=== PATIENT | male | born 1995 | race Caucasian/White ===

== ENCOUNTER 2016-08-22 22:26 | Emergency (ER) | payer BC, OTHER ==
[~2016-08-22] VITALS: Ht 180.3 cm; Wt 90.7 kg
[2016-08-22 23:02] LABS: BASOPHILS % (AUTO) 0 % (0-10); EOSINOPHILS # (AUTO) 0.1 10^3/uL (0.0-0.3); EOSINOPHILS % (AUTO) 2 % (0-10); LYMPHOCYTES # (AUTO) 2.9 X 10^3 (1.0-4.0); LYMPHOCYTES % (AUTO) 34 % (12-44); MEAN CORPUSCULAR HEMOGLOBIN 30 PG (25-34); MEAN CORPUSCULAR HGB CONC 36 G/DL (32-36); MEAN CORPUSCULAR VOLUME 83 FL (80-99); MEAN PLATELET VOLUME 11.2 FL (7.4-10.4); MONOCYTES # (AUTO) 0.8 X 10^3 (0.0-1.0); MONOCYTES % (AUTO) 10 % (0-12); NEUTROPHILS # (AUTO) 4.5 X 10^3 (1.8-7.8); NEUTROPHILS % (AUTO) 54 % (42-75); PLATELET COUNT 283 10^3/uL (130-400); RED BLOOD COUNT 5.12 10^6/uL (4.35-5.85); RED CELL DISTRIBUTION WIDTH 12.3 % (10.0-14.5); WHITE BLOOD COUNT 8.3 10^3/uL (4.3-11.0)
[2016-08-22 23:20] LABS: ALANINE AMINOTRANSFERASE 25 U/L (0-55); ANION GAP 12 MMOL/L (5-14); ASPARTATE AMINO TRANSFERASE 21 U/L (5-34); BILIRUBIN,TOTAL 0.5 MG/DL (0.1-1.0); BLOOD UREA NITROGEN 19 MG/DL (7-18); BUN/CREATININE RATIO 16; CALCIUM 9.6 MG/DL (8.5-10.1); CARBON DIOXIDE 24 MMOL/L (21-32); CHLORIDE 105 MMOL/L (98-107); CREATININE SERUM 1.21 MG/DL (0.60-1.30); GFR ESTIMATED > 60; GLUCOSE 83 MG/DL (70-105); MAGNESIUM 2.2 MG/DL (1.8-2.4); SODIUM 141 MMOL/L (135-145)
[2016-08-22 23:40] LABS: THYROID STIMULATING HORMONE 1.49 UIU/ML (0.35-4.94); TROPONIN I < 0.30 NG/ML (<0.30)
--- NOTE | 2016-08-23 00:29 | ED Chest Pain ---
General Chief Complaint: Chest Pain Stated Complaint: CHEST TIGHTNESS Nursing Triage Note: PT TO ED 8 W/ S.O. FOR C/O LT ARM PAIN ONSET 0500 THIS AM ET CHEST PAIN. PT'S S.O. REPORTS PT HAS HAD "TROUBLE SLEEPING" SINCE THE BEGINNING OF THIS YEAR, INTERMITTENT CHEST PAIN, LT ARM PAIN ET RAPID BOUNDING PULSE SINCE. REPORTS WAS SEEN ET EVALUATED AT [facility] BUT DENIES ANY "ANSWERS OR IMPROVEMENT". NO OTHER C/O AT THIS TIME. Nursing Sepsis Screen: No Definite Risk Source: patient Exam Limitations: no limitations History of Present Illness Time seen by provider: 23:30 Initial Comments Here with report of left arm pain this morning as well as intermittent chest pain this is been going on for several months. Also has had some trouble sleeping and feels his heart racing at night. He has been seen at outside facility and actually had a Holter monitor for 24 hours which did not have any significant findings. He has not had laboratory, radiology her EKG workup for he and the family. Denies nausea, vomiting, weakness, breathing problems or current problems right now. He is worried about his blood pressure. No recent long trips, trauma or injuries. He is concerned about his nighttime tachycardia. Timing/Duration: intermittent, other (3 months) Severity/Quality: mild Location: central Radiation: arms Activities at Onset: none ASA po CONTACT WORKER: No NTG SL CONTACT WORKER: No Associated Symptoms: No abdominal pain, No back pain, No diaphoresis, No nausea /vomiting, No shortness of breath, No weakness Allergies and Home Medications Allergies Coded Allergies: No Known Drug Allergies (Unverified , 08/22/16) Home Medications No Active Prescriptions or Reported Meds Review of Systems Constitutional: see HPINo chills, No fever EENTM: No Symptoms Reported Respiratory: No Symptoms Reported Cardiovascular: See HPI Chest Pain Palpitations Gastrointestinal: No Symptoms Reported Genitourinary: No Symptoms Reported Musculoskeletal: see HPI muscle pain Skin: no symptoms reported Psychiatric/Neurological: No Symptoms Reported All Other Systems Reviewed Negative Unless Noted: Yes Past Dxfxgfa-Buqzxu-Ymadam Hx Patient Social History Alcohol Use: Denies Use Recreational Drug Use: No Smoking Status: Never a Smoker Recent Foreign Travel: No Contact w/Someone Who Travel: No Recent Infectious Disease Expo: No Recent Hopitalizations: No Surgeries HX Surgeries: Yes Surgeries: Adenoidectomy, Tonsillectomy Respiratory Hx Respiratory Disorders: No Cardiovascular Hx Cardiac Disorders: No Neurological Hx Neurological Disorders: No Reproductive System Hx Reproductive Disorders: No Genitourinary Hx Genitourinary Disorders: No Gastrointestinal Hx Gastrointestinal Disorders: No Musculoskeletal Hx Musculoskeletal Disorders: No Endocrine Hx Endocrine Disorders: No HEENT HX ENT Disorders: No Cancer Hx Cancer: No Psychosocial Hx Psychiatric Problems: No Integumentary HX Skin/Integumentary Disorder: No Blood Transfusions Hx Blood Disorders: No Reviewed Nursing Assessment Reviewed/Agree w Nursing PMH: Yes Family Medical History Significant Family History: No Pertinent Family Hx Physical Exam Vital Signs Vital Sign - Last 12Hours 08/22/16 22:33 Temp 97.2 Pulse 78 Resp 18 B/P 132/72 Pulse Ox 98 O2 Delivery Room Air Capillary Refill : Less Than 3 Seconds General Appearance: No Apparent Distress WD/WN HEENT: PERRL/EOMI Pharynx Normal Neck: Non Tender Supple Respiratory: Lungs Clear Normal Breath Sounds Cardiovascular: Regular Rate, Rhythm No Murmur Gastrointestinal: Non Tender Soft (80) Extremity: Normal Range of Motion Non Tender No Calf Tenderness Neurologic/Psychiatric: Alert Oriented x3 ( is not his family all) Skin: Normal Color Warm/Dry Focused Exam Lactic Acid Level Laboratory Tests Test 08/22/16 22:50 Alanine Aminotransferase (ALT/SGPT) 25U/L (0-55) Albumin 5.0G/DL (3.2-4.5) H Alkaline Phosphatase 57U/L (40-136) Anion Gap 12MMOL/L (5-14) Aspartate Amino Transf (AST/SGOT) 21U/L (5-34) BUN/Creatinine Ratio 16 Blood Urea Nitrogen 19MG/DL (7-18) H Calcium Level 9.6MG/DL (8.5-10.1) Carbon Dioxide Level 24MMOL/L (21-32) Chloride Level 105MMOL/L (98-107) Creatinine 1.21MG/DL (0.60-1.30) Estimat Glomerular Filtration Rate > 60 Glucose Level 83MG/DL (70-105) Magnesium Level 2.2MG/DL (1.8-2.4) Potassium Level 4.0MMOL/L (3.6-5.0) Sodium Level 141MMOL/L (135-145) Thyroid Stimulating Hormone (TSH) 1.49UIU/ML (0.35-4.94) Total Bilirubin 0.5MG/DL (0.1-1.0) Total Protein 7.0G/DL (6.4-8.2) Troponin I < 0.30NG/ML (<0.30) Progress/Results/Core Measures Results/Orders Lab Results Laboratory Tests Test 08/22/16 22:50 Range/Units Alanine Aminotransferase (ALT/SGPT) 25 0-55 U/L Albumin 5.0 H 3.2-4.5 G/DL Alkaline Phosphatase 57 40-136 U/L Anion Gap 12 5-14 MMOL/L Aspartate Amino Transf (AST/SGOT) 21 5-34 U/L BUN/Creatinine Ratio 16 Basophils # (Auto) 0.0 0.0-0.1 10^3/uL Basophils (%) (Auto) 0 0-10 % Blood Urea Nitrogen 19 H 7-18 MG/DL Calcium Level 9.6 8.5-10.1 MG/DL Carbon Dioxide Level 24 21-32 MMOL/L Chloride Level 105 98-107 MMOL/L Creatinine 1.21 0.60-1.30 MG/DL D-Dimer < 0.27 0.00-0.49 UG/ML Eosinophils # (Auto) 0.1 0.0-0.3 10^3/uL Eosinophils (%) (Auto) 2 0-10 % Estimat Glomerular Filtration Rate > 60 Glucose Level 83 70-105 MG/DL Hematocrit 43 40-54 % Hemoglobin 15.3 13.3-17.7 G/DL Lymphocytes # (Auto) 2.9 1.0-4.0 X 10^3 Lymphocytes (%) (Auto) 34 12-44 % Magnesium Level 2.2 1.8-2.4 MG/DL Mean Corpuscular Hemoglobin 30 25-34 PG Mean Corpuscular Hemoglobin Concent 36 32-36 G/DL Mean Corpuscular Volume 83 80-99 FL Mean Platelet Volume 11.2 H 7.4-10.4 FL Monocytes # (Auto) 0.8 0.0-1.0 X 10^3 Monocytes (%) (Auto) 10 0-12 % Neutrophils # (Auto) 4.5 1.8-7.8 X 10^3 Neutrophils (%) (Auto) 54 42-75 % Platelet Count 283 130-400 10^3/uL Potassium Level 4.0 3.6-5.0 MMOL/L Red Blood Count 5.12 4.35-5.85 10^6/uL Red Cell Distribution Width 12.3 10.0-14.5 % Sodium Level 141 135-145 MMOL/L Thyroid Stimulating Hormone (TSH) 1.49 0.35-4.94 UIU/ML Total Bilirubin 0.5 0.1-1.0 MG/DL Total Protein 7.0 6.4-8.2 G/DL Troponin I < 0.30 <0.30 NG/ML White Blood Count 8.3 4.3-11.0 10^3/uL My Orders Orders-DRE HUNG MD Cbc With Automated Diff (08/22/16 22:41) Comprehensive Metabolic Panel (08/22/16 22:41) Fibrin Degradation Products (08/22/16 22:41) Magnesium (08/22/16 22:41) Thyroid Stimulating Hormone (08/22/16 22:41) Troponin I (08/22/16 22:41) Ekg Tracing (08/22/16 22:41) Chest Pa/Lat (2 View) (08/22/16 22:41) Vital Signs/I&O Vital Sign - Last 12Hours 08/22/16 08/22/16 22:33 22:33 Temp 97.2 Pulse 78 Resp 18 B/P 132/72 Pulse Ox 98 O2 Delivery Room Air Room Air Blood Pressure Mean: 92 Progress Note : Progress Note Seen and evaluated. Labs, EKG and chest x-ray ordered. Monitor patient. No ectopy noted on monitor throughout stay. 0030: Discharge home with return precautions. Patient verbalize understanding instructions and agreement with plan. ECG Initial ECG Impression Date: Aug 23, 2016 Initial ECG Impression Time: 21:46 Initial ECG Rate: 74 Initial ECG Rhythm: Normal Sinus Initial ECG Impression: Normal Comment Sinus rhythm with normal axis. No evidence of ST elevation [place]. No previous available for comparison. Interpreted by me. Diagnostic Imaging Diagonstic Imaging: Xray Plain Films/CT/US/NM/MRI: chest Comments No acute findings. Departure Impression Impression: Primary Impression: Palpitations Disposition: 01 HOME, SELF-CARE Condition: Improved Departure-Patient Inst. Decision time for Depature: 00:31 Referrals: NO,LOCAL PHYSICIAN (PCP) Primary Care Physician ASYA KULKARNI MD FACP FACC Pawel PRICE MD, BASHAR J MD Patient Instructions: Palpitations (DC) Add. Discharge Instructions: All discharge instructions reviewed with patient and/or family. Voiced understanding. Call and make appointment with toys inspector in the morning for appointment within one week. Return for worse pain, weakness, breathing problems, vomiting or other concerns as needed. Drink plenty of fluids. Avoid caffeinated beverages. Scripts No Active Prescriptions or Reported Meds DRE HUNG MD Aug 23, 2016 00:29
[2016-08-23 00:41] VITALS: BP 115/71
--- NOTE | 2016-08-23 07:11 | Diagnostic Imaging Report ---
PA and lateral views of the chest Indication: Chest tightness Findings: The lungs are clear. The heart size is normal. There is no effusion or pneumothorax The mediastinum and kurtis appear unremarkable. Impression: Unremarkable study. Dictated by: Dictated on workstation # [id number]
== END 2016-08-23 00:41 | disposition home or self-care (01) ==
LOC: EDUNIT# 22:26 → ER 22:29
DX: R00.2 Palpitations (principal)
CPT/HCPCS: 36415; 71020; 80053; 83735; 84443; 84484; 85025; 85379; 93005

== ENCOUNTER 2016-09-16 13:08 | Outpatient (RCR) | payer BC, OTHER | END 2016-12-15 | disposition home or self-care (01) | LOC: CARD 13:08 | PROVIDERS: ATTEND Internal Medicine Interventional Cardiology | DX: R00.2 Palpitations (principal) | CPT/HCPCS: 93225; 93226 ==

== ENCOUNTER → 2016-09-25 | Outpatient (CLI) | payer BC, OTHER ==
--- NOTE | 2016-09-25 19:43 | ECHOCARDIOGRAPHY REPORT ---
DATE OF SERVICE: PRIMARY PHYSICIAN: Dr. Lopez Reed DIAGNOSES: Shortness of breath, chest pain. FINDINGS: 1. Sinus rhythm. 2. Aortic root dimension normal. 3. Left ventricular size is normal. 4. LVEF systolic function is normal. LVEF 60%. No LVH is present. 5. There is no wall motion abnormalities. 6. Right heart size and function is normal. 7. There is no pericardial effusion. 8. Normal diastolic function. 9. IVC size is 1.5 cm. VALVULAR STRUCTURE OF THE HEART: There is trace triscuspid regurgitation with trace mitral regurigtation. There is trace pulmonic insufficiency. There is no aortic valve pathology. RVSP 6 mmHg. CONCLUSION: 1. LV and RV size and function is normal. 2. LVEF of 60%. 3. There is no valvular heart disease. 4. PA pressure is normal. Job ID: [id number] DocumentID: [id number] Dictated Date: 09/25/2016 14:06:38 Legal Biller Date: 09/25/2016 14:57:25 Dictated By: HOWARD BINGHAM MD
== END ==
LOC: CARD 08:00
PROVIDERS: ATTEND Internal Medicine Interventional Cardiology
DX: R00.2 Palpitations (principal); R07.9 Chest pain, unspecified; R06.02 Shortness of breath
CPT/HCPCS: 93270; 93306

== ENCOUNTER 2016-10-19 09:30 | Outpatient (RCR) | payer BC, OTHER | END 2016-12-24 | disposition home or self-care (01) | LOC: CARD 09:30 | PROVIDERS: ATTEND Internal Medicine Interventional Cardiology | DX: R00.2 Palpitations (principal) ==